=== PATIENT | male | born 1980 | race Caucasian/White ===

== ENCOUNTER 2017-07-08 10:33 | Emergency (ER) | payer BC ==
[~2017-07-08] VITALS: Ht 182.9 cm; Wt 86.9 kg
[2017-07-08 10:41] VITALS: BP 144/97
== END 2017-07-08 11:50 | disposition home or self-care (01) ==
LOC: ED 10:33
DX: F41.9 Anxiety disorder, unspecified (principal); J34.2 Deviated nasal septum

== ENCOUNTER 2019-08-03 18:44 | Emergency (ER) | payer BC ==
[~2019-08-03] VITALS: Ht 170.2 cm; Wt 93.4 kg
[2019-08-03 18:48] VITALS: Ht 170.2 cm; Wt 93.4 kg
[2019-08-03 19:52] VITALS: BP 121/75
== END 2019-08-03 19:52 | disposition home or self-care (01) ==
LOC: ED 18:44
DX: J36 Peritonsillar abscess (principal); R10.30 Lower abdominal pain, unspecified; F41.9 Anxiety disorder, unspecified
CPT/HCPCS: J0696; J1100